=== PATIENT | female | born 1935 | race Caucasian/White ===

== ENCOUNTER 2016-09-24 05:44 | Inpatient (IN) | payer MEDICARE, OTHER, MEDICAID ==
[~2016-09-24] VITALS: Ht 170.2 cm; Wt 83.5 kg
--- NOTE | 2016-09-26 01:37 | ER ---
ADMIT: 09/24/2016 RM/LOC: 633 [facility] MR#: [id number] [address] [address] [place] [address] Emergency Room Report SEX: F AGE: 80 : 1935 DATE: 09/24/2016 ADDENDUM: An 80-year-old female, comes in with lower abdominal pain. On examination, most of her pain is in the left lower quadrant and has been present for about 3 hours. She does have stable edema and stable shortness of breath at this time. Workup showed her white count of 4.2, hemoglobin of 11.5, platelets of 72, CO2 is 33, BUN is 93, glucose 102, creatinine 3.4, lactic acid 1.5. Urinalysis showed was likely infected urine with 82 white blood cells, was hazy, moderate bacteria, and 1+ leukocyte esterase. The patient had an IV started here and was given morphine and Zofran, was feeling better. She was given Levaquin 250 mg p.o., will be discharged home on Levaquin to follow up as scheduled with Dr. Lockett. DIAGNOSES: 1. Urinary tract infection. 2. Abdominal pain. 3. Thrombocytopenia. 4. Chronic kidney disease. Leobardo Haas MD/ yonis JOB #: [id number] CC: Dulce Lockett MD, Attending Physician Dulce Lockett MD, Family Physician
--- NOTE | 2016-09-26 01:37 | ER ---
ADMIT: 09/24/2016 RM/LOC: 633 [facility] MR#: [id number] [address] [address] KENNA CLOUDOINETTE Oscar [facility] [place] [address] Emergency Room Report SEX: F AGE: 80 : 1935 DATE: 09/24/2016 ADDENDUM: I spoke to Dr. Lockett who evaluated the patient in the ER and plan at this time is to bring her in for her abdominal pain and urinary tract infection. She was given her first dose of antibiotics in the emergency department and is going to be admitted in stable condition. Leobardo Haas MD/ yonis JOB #: [id number] CC: Dulce Lockett MD, Attending Physician Dulce Lockett MD, Family Physician
--- NOTE | 2016-10-04 08:28 | HP ---
ADMIT: 09/24/2016 RM/LOC: 633 [facility] MR#: [id number] [address] [address] [place] [address] History and Physical SEX: F AGE: 80 : 1935 DATE OF SERVICE: Kimberley is a patient of mine, who I do not have a complete medical record on who has a past medical history of aortic stent, peripheral vascular disease, femoral stents, coronary artery disease, diastolic heart failure, renal insufficiency, progressive. She has been followed by Dr. Latham and has requested if her kidney function continues to worsen, no hemodialysis. History of diverticulosis, COPD, hypoxia, and chronic O2 use. She presents with left lower quadrant pain in the ER. No fever no chills. No significant changes in her bowel habits. ER evaluation shows a sodium of 140, potassium 3.9, BUN and creatinine 96 and 3.4. White count 4.2, hemoglobin 11.5, platelet count 72,000. Lactic acid 1.5. UA was 3+ blood plus positive nitrites. CT showed a 5.7 descending thoracic aortic aneurysm, bilobed aortic changes aortic end graft. She at this time is admitted as she lives alone. Her kidney function is worsening with diuresis as well as she has questionable diverticulitis and evidence of a urinary tract infection. We will admit, hold her diuretics, watch her kidney function closely. if it would worsen or decline, she does not want hemodialysis. If she would have a progressive worsening of her condition, she does not want CPR or intubation. CKD which is worsening. COPD with chronic hypoxia. We will admit, resume home medications except hold diuretics. Started antibiotics. We will send urine for culture and sensitivity. Advance diet as tolerated. Start her on Levaquin. Continued close followup. Dulce Lockett MD/ yonis JOB #: [id number] CC: Dulce Lockett MD, Attending Physician Dulce Lockett MD, Family Physician
--- NOTE | 2016-10-04 13:03 | CO ---
ADMIT: 09/24/2016 RM/LOC: 633 [facility] MR#: [id number] [address] [address] [place] [address] Consultation SEX: F AGE: 80 : 1935 DATE OF CONSULTATION: 09/30/2016 ATTENDING PHYSICIAN: Dulce Lockett MD CONSULTING PHYSICIAN: Yara Lezama APRN TIME-IN: 1015 hours. TIME-OUT: 1140 hours. REASON FOR CONSULTATION: Supportive care consultation was requested by Dr. Lockett for discussion of goals for care. HISTORY OF PRESENT ILLNESS: Kimberley is a delightful 80-year-old, female with a history of diastolic heart failure, chronic kidney disease stage IV, thoracic aortic aneurysm, abdominal aortic aneurysm, status post grafting, PVD, as well as coronary artery disease. She is admitted on September 24 with abdominal pain and was found to have a urinary tract infection. She was treated with antibiotic therapy. She follows with renal as an outpatient due to her kidney issues and her overall predominant issue has been volume expansion. However, this has been maintained with high-dose diuretics. In discussion prior to hospital stay, the patient has directed that she would not want to pursue hemodialysis in the time ahead. At this point, the patient's family is hoping that the patient will try dialysis and the patient is now having to decide whether or not she will pursue this therapy. Due to her overall status and complexities, supportive care consultation was requested to discuss goals for care. In terms of advanced directives, the patient does have a living will and durable [id number] for healthcare. The patient's son Gareth Orta whose phone #[phone] is the patient's healthcare [id number]. The patient is a do not resuscitate/do not intubate status. Symptomatically, the patient appears comfortable. She is fatigued. She is quite weak and debilitated. She denies pain or dyspnea. PAST MEDICAL HISTORY: Atrial fibrillation, chronic diastolic heart failure, chronic kidney disease stage IV, hemorrhoids, proteinuria, hypothyroidism, thoracic aortic aneurysm, abdominal aortic aneurysm with aortic graft, preeclampsia, renal osteodystrophy, and carotid surgery. ALLERGIES: THE PATIENT IS ALLERGIC TO HYDROCHLOROTHIAZIDE WELL ATORVASTATIN. CURRENT MEDICATIONS: Please see the patient's MAR for specific routes and dosages. Her current medications are as follows: 1. Heparin. 2. Lasix. 3. Pepcid. ADMIT: 09/24/2016 RM/LOC: 633 [facility] MR#: [id number] [address] [place] [id number] KIMBERLEY ORTA [address] [place] [address] Consultation SEX: F AGE: 80 : 1935 4. Flonase. 5. Zyrtec. 6. Cepacol. 7. Norvasc. 8. Zofran. 9. Levaquin. 10.Rocephin. 11.DuoNeb. 12.Vitamin D. 13.Coreg. 14.Aspirin. 15.Synthroid. 16.Preparation H. 17.MiraLAX. 18.Tylenol. 19.Colace. 20.Nitrostat. SOCIAL HISTORY: The patient is . She states that she was living at home independently prior to admission. She does not use alcohol. She does not use tobacco or illicit drugs. FAMILY HISTORY: Her brother had heart disease as did her mother. FUNCTIONAL REVIEW: Prior to her hospital stay, she was living at home independently. She states that she could perform all ADLs without assistance. Her palliative performance scale prior to admission was around at 80%. Currently, she is mainly sitting in the bed or in the chair. She can walk with standby assist. Her current palliative performance scale is around 50% to 60%. REVIEW OF SYSTEMS: A 10-point review of systems was completed and other than those pertinent positives and negatives mentioned in the HPI, it is negative. PHYSICAL EXAMINATION: GENERAL: The patient examined in the bed. She is in no acute distress. VITAL SIGNS: Temperature 98.1, pulse 88, respirations 18, blood pressure 128/97, oxygen 89% on 2 L per nasal cannula. HEENT: Head is normocephalic. Pupils are 3 mm bilaterally and brisk. She has had some blue discoloration in the left periorbital area. Oral mucosa pink and moist with fair dentition. NECK: Supple. RESPIRATORY: Respirations are equal and nonlabored at rest. LUNGS: Diminished in the bases bilaterally. CARDIOVASCULAR: Rate rhythm regular without murmurs, rubs, or gallops. A 2+ bilateral lower extremity edema noted. A 1+ upper extremity edema noted. GASTROINTESTINAL: Soft, nontender. Bowel sounds are positive. MUSCULOSKELETAL: Generalized weakness. No obvious joint deformities. ADMIT: 09/24/2016 RM/LOC: 633 [facility] MR#: [id number] [address] [place] [id number] [facility] [address] Consultation SEX: F AGE: 80 : 1935 INTEGUMENTARY: Skin turgor is fair. No obvious rashes or wounds noted. NEUROLOGIC: Alert and oriented x3. She will follow commands. She can recall her conversation with Dr. Lockett this morning. PSYCHIATRIC: Calm and cooperative. She does demonstrate insight and judgment regarding her overall status. DIAGNOSTIC DATA: Sodium 140, potassium 4.3, BUN 99, creatinine 4, total protein 5.6, albumin 2.6. WBC is 3.8, hemoglobin 10.4, hematocrit 33.3, and platelets are 67. IMPRESSION: 1. Physical debility. 2. Fatigue. 3. Malaise. 4. Moderate protein-calorie malnutrition. 5. Acute kidney injury on chronic kidney disease, stage IV. 6. Volume overload. 7. Pleural effusion. 8. Diastolic heart failure. 9. Thoracic aortic aneurysm. 10.Abdominal aortic aneurysm with graft. 11.Peripheral vascular disease. 12.Coronary artery disease. 13.Palliative care. 14.The patient is a DNR/DNI. PLAN OF TREATMENT: 1. I was able to meet with the patient at the bedside. I introduced myself and my role for the time ahead. We reviewed her overall status and goals for the time ahead. The patient states that she is trying to decide if she will pursue hemodialysis. She does confirm that previously she has always directed that she would not pursue hemodialysis but states now that her family is wanting her to "try it." She is struggling with the decision. She does demonstrate insight and tells me that she will decline and without hemodialysis. We did briefly discuss the hospice benefit and philosophy and its role in keeping her comfortable in the event that she does not pursue hemodialysis. She does confirm her do not resuscitate/do not intubate status. She gives me permission to call her son and jknpz-mm-uronnklm Gareth. At this time, she is going to think about things and agrees to ongoing discussions in the days ahead. 2. I did call the patient's POA/son Gareth Salazar via telephone. We did discuss the patient's status and goals for the time ahead. He confirms ADMIT: 09/24/2016 RM/LOC: 633 [facility] MR#: [id number] [address] [address] KIMBERLEY [place] [facility] [address] Consultation SEX: F AGE: 80 : 1935 the family wants her to try dialysis but also states that he wants that he and her family want her to make her own decisions since they will support whatever decision she makes. He also agrees to ongoing discussions in the days ahead. 3. At this point, the patient and family are working through decisions. I will let the patient have today to think about things and will follow up with her again tomorrow to further discuss things. We would like to thank Dr. Lockett for the invitation to participate in this patient's care. Total consultation time was 50 minutes from 1050 hours to 1140 hours with 27 minutes from [id number] spent [id number] with the patient or on the phone with her POA/son discussing goals for care and providing counseling and support. We will continue to follow along. Yara Lezama APRN/ yonis JOB #: [id number] CC: Dulce Lockett MD, Attending Physician Dulce Lockett MD, Family Physician
--- NOTE | 2016-10-06 15:28 | CO ---
ADMIT: 09/24/2016 RM/LOC: 633 [facility] MR#: [id number] 2620 [facility] [address] [place] [id number] [place] [address] Consultation SEX: F AGE: 80 : 1935 DATE OF CONSULTATION: 09/28/2016 ATTENDING PHYSICIAN: Dulce Lockett MD CONSULTING PHYSICIAN: Bruce Latham MD REASON FOR CONSULTATION: Chronic kidney disease, stage IV. HISTORY OF PRESENT ILLNESS: The patient is a pleasant, 80-year-old female, who has a history of advanced chronic kidney disease. Her predominant issue has been volume expansion and she has been maintained on high dose diuretics as an outpatient. She was admitted to the hospital four days ago with a chief complaint of abdominal pain and urinary tract infection. She was also constipated prior to admission. She has been treated with antibiotics and she notes that her symptoms are much better. She does not have any abdominal pain anymore. She denies any dysuria or burning urination. Her constipation is better as well. However, she continues to be volume expanded. She was maintained on Bumex and metolazone as an outpatient, and she notes that her weight had been ranging in the 155 to 160 pounds range. However, during this hospitalization, her weight has gone up from 163 pounds upon admission to 171 pounds this a.m. She continues to have some orthopnea, PND, as well as exertional dyspnea. She has a cough with expectoration, but no fevers. She feels very weak. Appetite is at her baseline. She denies any skin rash, any skmq-qua-avrnion medications. REVIEW OF SYSTEMS: A complete review of systems is negative in detail except as mentioned in history of present illness above. PAST MEDICAL HISTORY: 1. Atrial fibrillation. 2. Chronic diastolic heart failure. 3. Chronic kidney disease, stage IV-proteinuric. Negative serologic workup. 4. Hemorrhoids. 5. Proteinuria. 6. Hypothyroidism. 7. Thoracic aortic aneurysm. 8. Abdominal aortic aneurysm with aortic graft. 9. Preeclampsia. 10.Renal osteodystrophy. 11.Carotid surgery. ALLERGIES: 1. HYDROCHLOROTHIAZIDE. 2. ATORVASTATIN. FAMILY HISTORY: Brother had heart disease. Mother had heart disease as well. SOCIAL HISTORY: She lives alone. Nonsmoker. No alcohol or recreational drug use. ADMIT: 09/24/2016 RM/LOC: 633 [facility] MR#: [id number] [address] [address] JEM CLOUD [facility] [place] [address] Consultation SEX: F AGE: 80 : 1935 MEDICATIONS: Reviewed in the chart. PHYSICAL EXAMINATION: VITAL SIGNS: Temperature 98.3 Fahrenheit, pulse 88, blood pressure 139/106. GENERAL: She is ill appearing, in bed. HEENT: She has pale conjunctiva. Moist mucosa. NECK: Supple without any JVD. CHEST: With decreased breath sounds on the left lung base. CVS: Regular rate and rhythm. S1 and S2 heard. No rubs, murmurs, or gallops. ABDOMEN: Soft. Nontender. EXTREMITIES: 2+ edema. She has presacral edema as well. SKIN: No rash or nodules. NEUROLOGIC: Alert, awake, and oriented x3. She is able to move all extremities. PSYCHIATRIC: Affect and memory within normal limits. MUSCULOSKELETAL: Major joints within normal limits. Range of motion within normal limits. LABORATORY DATA: Reviewed. BMP yesterday showed a creatinine of 3.5. Sodium was 139, potassium 4.4, CO2 of 30. Her hemoglobin is 10.9 with a white count of 4. Chest x-ray showed bilateral pleural effusions as well as some pulmonary vascular congestion. ASSESSMENT AND PLAN: 1. Chronic kidney disease, stage IV. 2. Volume expansion/bilateral pleural effusions. 3. Hypertension. ADMIT: 09/24/2016 RM/LOC: 633 [facility] MR#: [id number] [address] [address] PEDRO LUIS JEM Moore [facility] [place] [address] Consultation SEX: F AGE: 80 : 1935 She has severely decreased kidney function and we have had discussions with her as an outpatient wherein she is pretty clear that she would not want renal replacement therapy under any circumstance. This is a reasonable choice considering her comorbidities, especially considering the reportedly enlarging thoracic aortic aneurysm. She is obviously volume expand on exam with elevated blood pressure as well. I will resume her diuretics. I will check labs to monitor medication toxicity. I will use her daily weights as well as her chemistries as a guide for diuresis. She is agreeable to this plan of care. Thank you for this consultation. Please do not hesitate to contact with any questions. Bruce Latham MD/ yonis JOB #: [id number] CC: Dulce Lockett MD, Attending Physician Dulce Lockett MD, Family Physician
[2016-10-12] MEDS ORDERED: BUMETANIDE2 MG PO (11:48)
[2016-10-12] MEDS ORDERED: CARVEDILOL25 MG PO (11:48)
[2016-10-12] MEDS ORDERED: CHILDREN'S ASPI81 MG PO (11:48)
[2016-10-12] MEDS ORDERED: PROCTOZONE-HC 230 GM PR (11:48)
[2016-10-12] MEDS ORDERED: ZAROXOLYN2.5 MG PO (11:49)
[2016-10-12] MEDS ORDERED: LEVOTHYROXINE25 MCG PO (11:49)
[2016-10-12] MEDS ORDERED: MILK OF MAGNESI10 ML PO (11:49)
[2016-10-12] MEDS ORDERED: KLOR-CON M2020 ME1 PO (11:49)
[2016-10-12] MEDS ORDERED: VITAMIN D-32000 UNI1 PO (11:50)
[2016-10-12] MEDS ORDERED: ACETAMINOPHEN325 MG PO (11:50)
--- NOTE | 2016-10-15 07:52 | DS ---
ADMIT: 09/24/2016 RM/LOC: 633 [facility] MR#: [id number] [id number] [place], [place] [address] MAGN[place] ORTAETTE Oscar [address] [place] [address] General Discharge Summary SEX: F AGE: 80 : 1935 ADMISSION DATE: 09/24/2016 DISCHARGE DATE: 10/11/2016 DISCHARGE DIAGNOSES: 1. History of vascular disease, femoral stents. 2. Abdominal aortic aneurysm. 3. Coronary artery disease. 4. Diastolic heart failure. 5. Progressive renal insufficiency. 6. History of diverticulosis. 7. Chronic obstructive pulmonary disease. 8. Hypoxia, chronic oxygen use. 9. Evidence of progressive worsening renal function with initiation of dialysis after much thought. HISTORY OF PRESENT ILLNESS: Well documented in her H and P. LABORATORY AND RADIOGRAPHIC ASSESSMENT: She was in the hospital for approximately a week and a half, this is a highlight of that. Please see the medical record for full lab assessment. Initially, on admission, her white blood cell count was 4.2, hemoglobin was 11.2, hemoglobin stayed stable throughout the hospitalization with at the time of discharge, hemoglobin of 10.6. Urinalysis showed 3+ blood, positive nitrites. On admission, her lactic acid was 1.5, her sodium was 140, potassium 3.9, BUN and creatinine 93 and 3.4. Her urine culture showed E. coli, greater than 100,000. At the time of discharge, sodium was 138, potassium 3.8, BUN and creatinine 29 and 3.7. Thoracentesis pleural fluid showed no acute abnormalities. Hepatitis screen was negative. HIV was negative. Her CT showed 5.7 descending thoracic aortic aneurysm, bilobed abdominal aortic aneurysm with a maximum AP diameter of 6.2 cm. Chest x-ray showed bilateral pleural effusions with bilateral atelectasis, which improved after dialysis was initiated. Ultrasound of gallbladder showed cholelithiasis without evidence of ductal dilatation, ascites in the upper abdomen. PROCEDURES PERFORMED: Replacement of dialysis catheter and thoracentesis. HOSPITAL COURSE: Mrs. Orta was admitted to [facility] with evidence of progressive diastolic heart failure and progressive renal ADMIT: 09/24/2016 RM/LOC: 633 [facility] MR#: [id number] [address] [place], [place] [address] JEM ORTA [facility] [address] General Discharge Summary SEX: F AGE: 80 : 1935 insufficiency, weight gain. She was hospitalized for greater than 18 days. Initially, on admission, she was a DNR/DNI status. Initially, on admission, her decision was that she did not want to initiate dialysis. Dr. Latham had seen her in the past and followed her. She has had evidence of urinary tract infection and was treated with Levaquin. She was given IV diuresis, was initiated on IV Lasix, and placed on a Lasix drip. Her pleural effusions were evaluated with thoracentesis. Activity level was slowly but surely improved. After much thought, with family support and encouragement, decided that she would undergo dialysis. Placement of a dialysis catheter was undertaken and she was initiated on dialysis. She subsequently will be discharged home on dialysis with close followup as an outpatient. Please see totality of her hospital record in the body of her medical record. Dulce Lockett MD/ yonis JOB #: [id number] CC: Dulce Lockett MD, Attending Physician Dulce Lockett MD, Family Physician
== END 2016-10-11 15:45 | DRG 673 ==
LOC: ER 05:44 → 6PED 07:45
PROVIDERS: ADMIT Internal Medicine
PROC: 0W9B3ZX Drainage of Left Pleural Cavity, Percutaneous Approach, Diagnostic (ICD-10-PCS; principal; 2016-09-29)
PROC: 05HM33Z Insertion of Infusion Device into Right Internal Jugular Vein, Percutaneous Approach (ICD-10-PCS; 2016-10-07)
PROC: B513ZZA Fluoroscopy of Right Jugular Veins, Guidance (ICD-10-PCS; 2016-10-07)
PROC: B543ZZA Ultrasonography of Right Jugular Veins, Guidance (ICD-10-PCS; 2016-10-07)
PROC: 5A1D60Z (ICD-10-PCS; 2016-10-07)
PROC: 0JH63XZ Insertion of Tunneled Vascular Access Device into Chest Subcutaneous Tissue and Fascia, Percutaneous Approach (ICD-10-PCS; 2016-10-07)
DX: N17.9 Acute kidney failure, unspecified (principal); J18.9 Pneumonia, unspecified organism; I13.2 Hypertensive heart and chronic kidney disease with heart failure and with stage 5 chronic kidney disease, or end stage renal disease; J90 Pleural effusion, not elsewhere classified; E44.0 Moderate protein-calorie malnutrition; R18.8 Other ascites; I50.32 Chronic diastolic (congestive) heart failure; J44.0 Chronic obstructive pulmonary disease with (acute) lower respiratory infection; N39.0 Urinary tract infection, site not specified; N18.5 Chronic kidney disease, stage 5; E87.70 Fluid overload, unspecified; B96.20 Unspecified Escherichia coli [E. coli] as the cause of diseases classified elsewhere; D63.1 Anemia in chronic kidney disease; D69.6 Thrombocytopenia, unspecified; Z99.81 Dependence on supplemental oxygen; K59.00 Constipation, unspecified; K80.20 Calculus of gallbladder without cholecystitis without obstruction; I48.91 Unspecified atrial fibrillation; I73.9 Peripheral vascular disease, unspecified; E03.9 Hypothyroidism, unspecified; N25.0 Renal osteodystrophy; I25.10 Atherosclerotic heart disease of native coronary artery without angina pectoris; I71.2 Thoracic aortic aneurysm, without rupture; I71.4 Abdominal aortic aneurysm, without rupture; K57.90 Diverticulosis of intestine, part unspecified, without perforation or abscess without bleeding; R09.02 Hypoxemia; Z66 Do not resuscitate